=== PATIENT | male | born 1985 | race Two or more races ===

== ENCOUNTER → 2021-03-24 10:05 | Outpatient (CLI) | payer BC, SELFPAY ==
--- NOTE | ~2021-03-24 | XR_ITS ---
EXAMINATION: XR chest 2V DATE: 03/24/2021 10:42 INDICATION: Left upper back pain. TECHNIQUE: Frontal and lateral views of the chest were obtained. COMPARISON: None. FINDINGS: The chest demonstrates clear lungs without pneumonia, pleural effusion, or pneumothorax. Th e heart size is normal. IMPRESSION: 1. No acute cardiopulmonary disease. Reviewed, dictated and finalized at location B. K COOPER
--- NOTE | ~2021-03-24 | XR_ITS ---
EXAMINATION: XR thoracic spine 3V DATE: 03/24/2021 10:41 INDICATION: Left upper back pain. TECHNIQUE: 3 views of thoracic spine were obtained. COMPARISON: None. FINDINGS: There is 6 degrees dextrocurvature of thoracic spine. Vertebral body heights and interverte bral disc heights are normal. There are endplate osteophytes at multiple levels. IMPRESSION: 1. Mild thoracic spondylosis. Reviewed, dictated and finalized at location B. INSERTER
== END ==
PROVIDERS: PCP Emergency Medicine; Visit Provider Emergency Medicine
DX: M54.2 Cervicalgia (principal); M47.894 Other spondylosis, thoracic region
CPT/HCPCS: 71046; 72072

== ENCOUNTER 2021-04-25 18:34 | Emergency (ER) | payer BC, SELFPAY ==
[2021-04-25 18:41] VITALS: BP 132/83; PULSE 94; RESP 16; TEMP 36.8; O2SAT 100
--- NOTE | 2021-04-25 19:08 | ECG_ITS ---
Measurements Intervals [place] Rate: 84 P: 32 AR: 124 QRS: 3 QRSD: 93 T: 17 QT: 351 QTc: 415 Interpretive Statements SINUS RHYTHM ST ELEVATION IN ANTEROLAT/HIGH LAT LEADS, PROBABLY EARLY REPOLARIZATION BORDERLINE ECG Electronically Signed On 04-25-2021 20:41:28 [employer] MIXER by Eric Bradley D.O.
--- NOTE | 2021-04-25 19:10 | ED.GENADULT ---
HPI - General Adult General Chief complaint: Chest Pain Stated complaint: chest pain Source: patient Mode of arrival: ambulatory Limitations: no limitations History of Present Illness HPI narrative: Patient presents for evaluation of chest pain for the last 4 to 5 days. He indicates the pain is intermittent, occurs approximately 3 times per day lasts about 10 to 15 minutes in duration. He cannot provide me with a descriptive quality of the pain but states that it is 5 out of 10 in severity, reproducible with outpatient. He indicates that on 03/18/2021 he noted pain in the left trapezius. He did not have any precipitating cause or injury. She thought that it was musculoskeletal pain but it persisted. Therefore he saw a primary care provider and labs and an EKG. EKG was normal per his reports. Total bilirubin was slightly elevated as well as one of his liver enzymes so right upper quadrant ultrasound was performed and showed fatty liver. He had a chest x-ray which was normal and a thoracic spinal film that showed thoracic spondylosis. He initially informed me that his pain was constant but later informs me that it is intermittent and rates pain 8/10. He also reports pain in posterior aspect of left upper arm. He states that the pain in his trapezius and left upper arm always occur together. Pain in chest occurs at same time his pain in trapezius and left upper arm 80% of the time. He denies any chest pain, cough or shortness of breath. He does not smoke. No underlying history of diabetes, hypertension, hyperlipidemia. No family history of CAD. He has been working out at the gym using [employer]. No additional complaints or concerns. Related Data Home Medications Medication Instructions Recorded Confirmed ergocalciferol (vitamin D2) 04/25/21 naproxen 250 mg PO BID 04/25/21 04/25/21 Allergies Allergy/AdvReac Type Severity Reaction Status Date / Time No Known Allergies Allergy Verified 04/25/21 18:41 Review of Systems Review of Systems: CONSTITUTIONAL: Denies fever, chills, or sweats. EYES: Denies visual changes, redness, or discharge. ENT: Denies rhinorrhea, congestion, sore throat, or otalgia. CARDIOVASCULAR: Reports chest pain. Denies palpitations and edema RESPIRATORY: Denies cough or dyspnea. GASTROINTESTINAL: Denies abdominal pain, nausea, vomiting, or diarrhea. GENITOURINARY: Denies dysuria or hematuria. SKIN: Denies rash or itching. MUSCULOSKELETAL: Reports pain in left trapezius and LUE NEUROLOGIC: Denies headache, numbness, dizziness, or weakness. PSYCHIATRIC: Denies anxiety or depression. [facility] Past Medical History Medical History (Updated 04/25/21 @ 19:31 by GIGI Barron, ) Fatty liver Surgical History Surgical History No pertinent past surgical history Family History Family History Father No pertinent past medical history Social History Social History Smoking status: Never smoker Alcohol intake: current Alcohol use details: Occasional Substance use: never Living arrangements: with family Gender identity (if verbalized by the patient): Male Sexual Orientation (if Verbalized by the Patient): Straight or Heterosexual Spiritual care concerns: No Exam Narrative: GENERAL: Well-appearing, well-nourished, and in no acute distress. HEAD: Normocephalic, atraumatic. EYES: PERRLA and EOMI. ENT: Nares clear, no rhinorrhea or epistaxis. Mucous membranes moist. Oropharynx without tonsillar hypertrophy exudate or other lesions. Bilateral TMs pearly sprague nonbulging NECK: Supple. No adenopathy or masses. No carotid bruits or JVD. No tenderness in midline or paraspinous muscles bilaterally of cervical spine no tenderness over the trapezius CHEST: Clear to auscultation. No respiratory distres
[2021-04-25] MEDS: ASPIRIN 81 MG CHEWABLE TABLET 324 MG PO (19:25)
== END 2021-04-25 19:41 | disposition short-term general hospital (02) ==
PROVIDERS: Emergency Provider Nurse Practitioner; PCP Emergency Medicine
DX: R07.89 Other chest pain (principal); K76.0 Fatty (change of) liver, not elsewhere classified
CPT/HCPCS: 93005; 99213; A9270; G0463

== ENCOUNTER 2021-04-25 19:57 | Emergency (ER) | payer BC, SELFPAY ==
--- NOTE | ~2021-04-25 | XR_ITS ---
XR chest 2V DATE: 04/25/2021 20:26 INDICATION: Chest pain TECHNIQUE: PA and lateral views COMPARISON: 03/24/2021 2 view chest FINDINGS: Normal heart size. No hilar or mediastinal enlargement. No pulmonary infiltrate or consolidation, pleural effusion or pulmonary vascular congestion or pneumo thorax. Mild thoracic dextroscoliosis. IMPRESSION: No active cardiopulmonary disease Reviewed, dictated and finalized at location A. IFIED TECHNICIAN
--- NOTE | 2021-04-25 20:02 | ECG_ITS ---
Measurements Intervals [place] Rate: 81 P: 17 [place]: 129 QRS: 2 QRSD: 85 T: 14 QT: 343 QTc: 400 Interpretive Statements SINUS RHYTHM EARLY PRECORDIAL R/S TRANSITION ST ELEVATION IN DIFFUSE LEADS, PROBABLY EARLY REPOLARIZATION BORDERLINE ECG Electronically Signed On 04-25-2021 20:42:26 [employer]ING FURNACE OPERATOR by Eric Bradley D.O.
[2021-04-25 20:03] VITALS: BP 134/89; PULSE 84; RESP 18; TEMP 36.7; O2SAT 100
[2021-04-25 20:26] LABS: Basophils Percent Auto 0.7 % (0.2-1.2); Eosinophils Absolute Auto 0.2 K/mm3 (0-0.3); Eosinophils Percent Auto 3.8 % (0-4.4); Hemoglobin 15.5 g/dL (14.0-18.0); Immature Granulocyte Absolute 0.01 K/mm3 (0.00-0.031); Immature Granulocyte Percent A 0.2 % (0-0.5); Lymphocytes Absolute Auto 1.55 K/mm3 (0.9-3.2); Lymphocytes Percent Auto 26.6 % (18.3-44.2); Mean Corpuscular HGB Conc 33.7 g/dl (32-36); Mean Corpuscular Hemoglobin 31.2 pg (26-34); Mean Corpuscular Volume 92.6 fl (80-100); Mean Platelet Volume 10.3 fl (7.4-10.4); Monocytes Absolute Auto 0.4 K/mm3 (0.1-0.6); Monocytes Percent Auto 6.7 % (2.6-8.5); Neutrophils Absolute Auto 3.6 K/mm3 (1.3-6.7); Platelet Count Result 256 k/mm3 (150-375); Red Blood Count 4.97 M/mm3 (4.6-6.20); Red Cell Distribution Width 11.6 % (11.5-14.5); White Blood Count 5.8 K/mm3 (4.5-10.0)
[2021-04-25 20:36] LABS: Alanine Aminotransferase 65 U/L (4-50); Albumin Level 4.9 g/dL (3.5-5.1); Alkaline Phosphatase 75 U/L (38-126); Anion Gap 4 mmol/L (8-16); Aspartate Amino Transferase 56 U/L (17-59); Bilirubin,Total 1.7 mg/dL (0.2-1.3); Blood Urea Nitrogen 14 mg/dL (9-20); Calcium 9.9 mg/dL (8.4-10.2); Carbon Dioxide 30 mmol/L (22-30); Chloride 105 mmol/L (98-107); Estimated CRCL calculation 105 ml/min; Estimated Glomerular Filt Rate > 60; Glucose 112 mg/dL (65-110); Lipase 84 U/L (23-300); Potassium 4.6 mmol/L (3.4-5.0); Sodium 139 mmol/L (137-145)
[2021-04-25 20:37] LABS: Partial Thromboplastin Time 25.8 SECONDS (22.3-36.8)
[2021-04-25 20:48] LABS: Troponin I < 0.012 ng/mL (0.000-0.034)
[2021-04-25 21:04] LABS: Prothrombin Time 13.2 Seconds (11.1-14.7)
[2021-04-25 21:30] VITALS: PULSE 87
[2021-04-25 21:31] VITALS: BP 130/76; PULSE 81; RESP 16; O2SAT 98
[2021-04-25 22:17] VITALS: BP 123/82; PULSE 74; RESP 17; O2SAT 100
[2021-04-25 22:27] LABS: CRP < 0.5 mg/dL (<1.0)
[2021-04-25 22:39] VITALS: BP 121/79; PULSE 71; RESP 19; O2SAT 100
[2021-04-25 22:55] LABS: Erythrocyte Sedimentation Rate 5 mm/hr (0-20)
[2021-04-25 23:19] LABS: Troponin I < 0.012 ng/mL (0.000-0.034)
--- NOTE | 2021-04-25 23:28 | ED.GENADULT ---
HPI - General Adult General Chief complaint: Chest Pain Stated complaint: Chest pain Time Seen by Provider: 04/25/21 21:45 History of Present Illness HPI narrative: 36-year-old gentleman presents emerged department chief complaint chest pain. Patient reports that for the last 5 to 6 days he has been having discomfort in his chest reports that it worsened whenever he palpates his chest and when he takes a deep breath or when he leans forward. Patient denies fever denies chills patient reports he was seen at urgent care today and they recommended he come to the emergency department as he had some LVH on his EKG. Related Data Home Medications Medication Instructions Recorded Confirmed ergocalciferol (vitamin D2) 04/25/21 naproxen 250 mg PO BID 04/25/21 04/25/21 Allergies Allergy/AdvReac Type Severity Reaction Status Date / Time No Known Allergies Allergy Verified 04/25/21 18:41 Review of Systems Review of Systems: A 10 system review of systems was completed on the patient and is negative except for what is stated in the HPI. Nursing and ancillary documentation was reviewed. PMFSH Past Medical History Medical History Fatty liver Surgical History Surgical History No pertinent past surgical history Family History Family History Father No pertinent past medical history Social History Social History Smoking status: Never smoker Alcohol intake: current Alcohol use details: Occasional Substance use: never Gender identity (if verbalized by the patient): Male Sexual Orientation (if Verbalized by the Patient): Straight or Heterosexual Spiritual care concerns: No Exam Narrative: GENERAL: Well-appearing, well-nourished, and in no acute distress. HEAD: Normocephalic, atraumatic. EYES: PERRLA and EOMI. ENT: Nares clear, no rhinorrhea or epistaxis. Mucous membranes moist. NECK: Supple. CHEST: Clear to auscultation. No respiratory distress. HEART: Regular rate and rhythm. No murmur heard. Normal peripheral pulses. ABDOMEN: Soft, nontender, nondistended, normal active bowel sounds. EXTREMITIES: Normal range of motion. No edema. SKIN: Warm, dry, no rash. NEURO: No focal deficits. Alert and oriented x3. PSYCH: Normal mood and affect. Course Course Emergency Course: EKG shows early repolarization rate of 81 Vital Signs Vital signs: Vital Signs Temperature 36.7 C 04/25/21 20:03 Pulse Rate 84 04/25/21 20:03 Respiratory Rate 18 04/25/21 20:03 Blood Pressure 134/89 04/25/21 20:03 Pulse Oximetry 100 04/25/21 20:03 Temperature 36.7 C 04/25/21 20:03 Pulse Rate 71 04/25/21 22:39 Respiratory Rate 19 04/25/21 22:39 Blood Pressure 121/79 04/25/21 22:39 Pulse Oximetry 100 04/25/21 22:39 Medical Decision Making Vital Signs Vital Signs: Vital Signs Temperature 36.7 C 04/25/21 20:03 Pulse Rate 84 04/25/21 20:03 Respiratory Rate 18 04/25/21 20:03 Blood Pressure 134/89 04/25/21 20:03 Pulse Oximetry 100 04/25/21 20:03 Temperature 36.7 C 04/25/21 20:03 Pulse Rate 71 04/25/21 22:39 Respiratory Rate 19 04/25/21 22:39 Blood Pressure 121/79 04/25/21 22:39 Pulse Oximetry 100 04/25/21 22:39 Lab Data Result diagrams: 04/25/21 20:19 04/25/21 20:19 Labs: Lab Results 04/25/21 04/25/21 04/25/21 Range/Units 20:18 20:18 20:19 WBC 5.8 (4.5-10.0) K/mm3 RBC 4.97 (4.6-6.20) M/mm3 Hgb 15.5 (14.0-18.0) g/dL Hct 46.0 (42.0-52.0) % MCV 92.6 (80-100) fl MCH 31.2 (26-34) pg MCHC 33.7 (32-36) g/dl RDW 11.6 (11.5-14.5) % Plt Count 256 (150-375) k/mm3 MPV 10.3 (7.4-10.4) fl Immature Gran % (Auto) 0.2 (0-0.5)
== END 2021-04-25 23:39 | disposition home or self-care (01) ==
PROVIDERS: Emergency Provider Emergency Medicine; PCP Emergency Medicine
DX: R07.89 Other chest pain (principal); R94.31 Abnormal electrocardiogram [ECG] [EKG]
CPT/HCPCS: 36415; 71046; 80053; 83690; 84484; 85025; 85610; 85652; 85730; 86140; 93005; 99284